=== PATIENT | female | born 1980 | race Caucasian/White ===

== ENCOUNTER 2016-08-23 06:06 | Emergency (ER) | payer BC, OTHER ==
[2016-08-23 06:20] VITALS: BP 124/92
--- NOTE | 2016-08-23 06:43 | EDM.PDOC ---
ED HPI GENERAL MEDICAL PROBLEM - General Chief Complaint: Eye Problems Stated Complaint: SWOLLEN R EYE Time Seen by Provider: 08/23/16 06:27 Source of Information: Reports: Patient History Limitations: Reports: No Limitations - History of Present Illness INITIAL COMMENTS - FREE TEXT/NARRATIVE: The patient presents with pain and redness to the right christian. She noticed this a few days ago. She saw Dr Hernandez for a different issue and she put her on some bactrim. She had 3 doses and now she has edema to her right upper and lower eyelids. She has no fever or chills. She has pain when she opens her jaw. 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: Endometrial Ablation, Fibroids, Polycystic Ovaries - Past Surgical History HEENT Surgical History: Reports: Adenoidectomy, Tonsillectomy Social & Family History - Tobacco Use Smoking Status *Q: Current Every Day Smoker Years of Tobacco use: 15 Packs/Tins Daily: 0.5 Used Tobacco, but Quit: No Second Hand Smoke Exposure: No - Caffeine Use Caffeine Use: Reports: Soda - Alcohol Use Days Per Week of Alcohol Use: 0 - Recreational Drug Use Recreational Drug Use: No ED ROS GENERAL - Review of Systems Review Of Systems: See Below Constitutional: Reports: No Symptoms HEENT: Reports: Other (Pain and redness to the right christian) Respiratory: Reports: No Symptoms Cardiovascular: Reports: No Symptoms Endocrine: Reports: No Symptoms GI/Abdominal: Reports: No Symptoms : Reports: No Symptoms Musculoskeletal: Reports: No Symptoms Skin: Reports: No Symptoms ED EXAM GENERAL W FULL EYE - Physical Exam Exam: See Below Exam Limited By: No Limitations General Appearance: Alert, No Apparent Distress Eye Exam: Right Eye: PERRL Eyelids: Right: Edema Ears: Normal External Exam Nose: Normal Inspection Head: Atraumatic, Normocephalic, Other (Eryethema and edema to the right christian area with some drainage.) Neck: Normal Inspection Respiratory/Chest: No Respiratory Distress, Lungs Clear, Normal Breath Sounds Cardiovascular: Regular Rate, Rhythm, No Edema, No Murmur GI/Abdominal: Soft, Non-Tender, No Organomegaly, No Mass Extremities: Normal Inspection Neurological: Alert, Oriented, No Motor/Sensory Deficits Course - Vital Signs Last Recorded V/S: Last Vital Signs Temp 97.5 F 08/23/16 06:13 Pulse 88 08/23/16 06:13 Resp 18 08/23/16 06:13 BP 124/92 H 08/23/16 06:13 Pulse Ox 99 08/23/16 06:13 - Orders/Labs/Meds Orders: Active Orders 24 hr Category Date Time Status cefTRIAXone 1 GM with Lidocaine 1% 2.1 ML IM Med 08/23/16 06:45 Ordered cefTRIAXone [Rocephin] 1 gm Lidocaine 1% 2.1 ml IM Q24H - Re-Assessments/Exams Free Text/Narrative Re-Assessment/Exam: 08/23/16 06:41 I will give her a shot of rocephin and get her on some keflex for better coverage. Departure - Departure Time of Disposition: 06:45 Disposition: Home, Self-Care 01 Condition: good Clinical Impression: Cellulitis of head or scalp - Discharge Information Prescriptions: Cephalexin [Keflex] 500 mg PO Q6HR #40 cap Referrals: Mimi Mejias PA-C [Physician [employer]] - 1 Week (If not better) Forms: ED Department Discharge Additional Instructions: Take the bactrim 2 times per day and the keflex 4 times per day. Put warm compresses on that affected area 2 to 3 times per day for 5 days. Wash the area with warm soapy water and apply antibiotic ointment after. Please return if you are worse. - My Orders Last 24 Hours: My Active Orders 08/23/16 06:45 cefTRIAXone 1 GM with Lidocaine 1% 2.1 ML IM cefTRIAXone [Rocephin] 1 gm Lidocaine 1% 2.1 ml IM Q24H - Assessment/Plan Last 24 Hours: My Active Orders 08/23/16 06:45 cefTRIAXone 1 GM with Lidocaine 1% 2.1 ML IM cefTRIAXone [Rocephin] 1 gm Lidocaine 1% 2.1 ml IM Q24H
[2016-08-23] MEDS ORDERED: cefTRIAXone 1 GM, Lidocaine 1% 2.1 ML IM SCH ×2 (06:45)
== END 2016-08-23 06:59 | disposition home or self-care (01) ==
LOC: JD.ED 06:06
DX: L03.811 Cellulitis of head [any part, except face] (principal); F17.210 Nicotine dependence, cigarettes, uncomplicated; Z90.89 Acquired absence of other organs; Z98.890 Other specified postprocedural states
CPT/HCPCS: 96372; 99283; J0696